=== PATIENT | male | born 1950 | race African-American/Black ===

== ENCOUNTER 2016-10-17 10:06 | Emergency (ER) | payer OTHER ==
[2016-10-17] MEDS ORDERED: KETOROLAC 30 MG/ML VIAL ONE (11:42)
[2016-10-17] MEDS ORDERED: LORAZEPAM 2 MG/ML VIAL ONE (11:42)
[2016-10-17] MEDS ORDERED: SODIUM CHLORIDE 0.9% 1,000 ML ONE (11:42)
== END 2016-10-17 13:30 | disposition home or self-care (01) ==
LOC: ER 10:06
DX: M54.12 Radiculopathy, cervical region (principal); I10 Essential (primary) hypertension; E03.9 Hypothyroidism, unspecified; Z79.899 Other long term (current) drug therapy
CPT/HCPCS: 96361; 96374; 96375; 99283; J1885